=== PATIENT | male | born 1975 | race Caucasian/White ===

== ENCOUNTER → 2019-10-26 | Outpatient (CLI) | payer BC ==
[2014-12-18 16:00] VITALS: BP 124/71
[~2019-10-26] MED LIST: FLONASE0.05 MG/AC NS; IBUPROFEN200 M1 PO; TYLENOL EXTRA500 M1 PO; VIBRAMYCIN100 MG PO
== END ==
LOC: RAD 09:07
DX: G31.9 Degenerative disease of nervous system, unspecified (principal); G40.A09 Absence epileptic syndrome, not intractable, without status epilepticus; F10.20 Alcohol dependence, uncomplicated

== ENCOUNTER → 2019-11-18 | Outpatient (CLI) | payer BC ==
[2014-12-18 16:00] VITALS: BP 124/71
[2019-11-18 12:29] LABS: URINE APPEARANCE CLEAR; URINE BILIRUBIN NEGATIVE (NEGATIVE); URINE BLOOD TRACE (NEGATIVE); URINE COLOR YELLOW; URINE GLUCOSE NEGATIVE (NEGATIVE); URINE KETONE NEGATIVE (NEGATIVE); URINE LEUKOCYTE ESTERASE NEGATIVE (NEGATIVE); URINE MUCUS PRESENT (NOT PRESENT); URINE NITRATE NEGATIVE (NEGATIVE); URINE PROTEIN(semi-quant) 1+ mg/dL (NEGATIVE); URINE UROBILINOGEN NORMAL (NORMAL); URINE WBC 0-1 /hpf (0-3)
[2019-11-18 12:37] LABS: ALBUMIN 4.8 g/dL (3.5-5.0)
[2019-11-18 12:38] LABS: POTASSIUM 3.8 mmol/L (3.5-5.1)
[2019-11-18 12:39] LABS: CALCIUM 9.4 mg/dL (8.3-10.5)
[2019-11-18 12:40] LABS: TOTAL PROTEIN 7.8 g/dL (6.4-8.3)
[2019-11-18 12:46] LABS: MAGNESIUM 1.49 mg/dL (1.60-2.60)
== END ==
LOC: LAB 12:12
PROVIDERS: Family Medicine
DX: G40.A09 Absence epileptic syndrome, not intractable, without status epilepticus (principal); F10.20 Alcohol dependence, uncomplicated

== ENCOUNTER 2020-11-02 09:40 | Emergency (ER) | payer OTHER ==
[2020-11-02] MEDS ORDERED: FLONASE SENSIM5.9 ML NS (09:54)
[2020-11-02] MEDS ORDERED: TYLENOL 325MG325 MG PO (09:55)
[2020-11-02 10:17] LABS: ALBUMIN 4.6 g/dL (3.5-5.0); POTASSIUM 3.6 mmol/L (3.5-5.1)
[2020-11-02 10:18] LABS: CALCIUM 9.3 mg/dL (8.3-10.5)
[2020-11-02 10:20] LABS: TOTAL PROTEIN 7.8 g/dL (6.4-8.3)
[2020-11-02 10:21] LABS: TOTAL BILIRUBIN 0.7 mg/dL (0.2-1.2)
[2020-11-02 10:26] LABS: BASO # 0.04 (0.02-0.10); EOS # 0.15 (0.04-0.40); EOS % 2.5 % (0.0-4.0); HEMATOCRIT 46.8 % (42.0-52.0); HEMOGLOBIN 16.1 g/dL (13.5-18.0); LYMPH# 1.07 (1.50-4.00); MEAN CELL VOLUME 97 fl (78-100); MEAN CORPUSCULAR HEMOGLOBIN 33 pg (27-31); MEAN CORPUSCULAR HGB CONC 34 g/dL (33-37); MONO # 0.72 (0.20-0.80); NEU # 4.07 (1.40-6.50); PLATELET COUNT 164 K/mm3 (130-400); RED BLOOD COUNT 4.85 M/mm3 (4.20-5.60); RED CELL DISTRIBUTION WIDTH 12.3 % (11.5-14.5); WHITE BLOOD COUNT 6.1 K/mm3 (4.8-10.8)
[2020-11-02 11:00] VITALS: BP 165/107
== END 2020-11-02 11:00 | disposition home or self-care (01) ==
LOC: ED 09:40
PROVIDERS: Family Medicine
DX: T58.91XA Toxic effect of carbon monoxide from unspecified source, accidental (unintentional), initial encounter (principal); R42 Dizziness and giddiness; Z87.891 Personal history of nicotine dependence

== ENCOUNTER 2021-07-16 10:48 | Outpatient (RCR) | payer OTHER ==
[~2021-07-16 10:48] MED LIST changes: +FLONASE SENSIM5.9 ML NS; +TYLENOL 325MG325 MG PO
== END 2021-07-23 | disposition home or self-care (01) ==
LOC: PT
DX: S22.010D Wedge compression fracture of first thoracic vertebra, subsequent encounter for fracture with routine healing (principal)

== ENCOUNTER → 2022-01-16 | Outpatient (CLI) | payer OTHER | LOC: LAB 11:44 | DX: R11.2 Nausea with vomiting, unspecified (principal); Z20.822 Contact with and (suspected) exposure to COVID-19 ==

== ENCOUNTER → 2022-02-18 | Outpatient (CLI) | payer OTHER ==
[2022-02-18 10:45] LABS: HEMATOCRIT 46.2 % (42.0-52.0); HEMOGLOBIN 15.8 g/dL (13.5-18.0); MEAN PLATELET VOLUME 9.5 fl (7.4-10.4); RED BLOOD COUNT 4.65 M/mm3 (4.20-5.60); RED CELL DISTRIBUTION WIDTH 11.2 % (11.5-14.5); WHITE BLOOD COUNT 9.4 K/mm3 (4.8-10.8)
[2022-02-18 11:06] LABS: ALBUMIN 4.7 g/dL (3.5-5.0); POTASSIUM 4.3 mmol/L (3.5-5.1); SODIUM 138 mmol/L (136-145)
[2022-02-18 11:07] LABS: CALCIUM 10.7 mg/dL (8.3-10.5)
[2022-02-18 11:08] LABS: GLUCOSE 89 mg/dL (75-110)
[2022-02-18 11:09] LABS: TOTAL PROTEIN 7.8 g/dL (6.4-8.3)
[2022-02-18 11:10] LABS: CARBON DIOXIDE 27 mmol/L (22-29); TOTAL BILIRUBIN 0.5 mg/dL (0.2-1.2)
[2022-02-18 11:14] LABS: AST-SGOT 17 U/L (5-34)
[2022-02-18 11:15] LABS: ALCOHOL IN-HOUSE < 10 mg/dL (<10); ALT/SGPT 17 U/L (0-55)
== END ==
LOC: LAB 10:30
PROVIDERS: Family Medicine
DX: G40.909 Epilepsy, unspecified, not intractable, without status epilepticus (principal); F10.10 Alcohol abuse, uncomplicated